=== PATIENT | male | born 1955 | race Caucasian/White ===

== ENCOUNTER 2020-12-02 06:37 | Outpatient (CLI) | payer MEDICARE, OTHER, SELFPAY ==
--- NOTE | ~2020-12-02 | MR_ITS ---
EXAMINATION: MR shoulder LT wo con DATE: 12/02/2020 07:46 INDICATION: Left shoulder pain TECHNIQUE: Magnetic resonance imaging (MRI) of the left shoulder was performed without intravenous co ntrast. Sequences included axial PD-weighted FS FSE, coronal oblique PD-weighted FS FSE, coronal obli que T2-weighted FS FSE, sagittal PD-weighted FS FSE, and sagittal T1-weighted SE. COMPARISON: None. FINDINGS: Coracoacromial arch: The acromion undersurface is flat in morphology (type I). The coracoacromial ligament is normal. Lori re acromioclavicular osteoarthritis with subarticular cystic change and edema at both sides of the se verely narrowed joint space. Rotator cuff: Mild supraspinatus and subscapularis tendinopathy without discrete tear. The infraspinatus and teres minor tendons are normal. No asymmetric atrophy of the rotator cuff muscles. Mild edema along the po sterior margin of the supraspinatus muscle belly which could be related to low-grade strain. Biceps tendon, glenoid labrum and glenohumeral cartilage: Long head of the biceps tendon is normal. There is a tear at the base of the posterior superior gleno id labrum with tiny para labral cyst at the 11:00 position. Glenohumeral cartilage is . Relatively pr eserved however there are tiny marginal osteophytes at the posterior and anteroinferior glenoid. Fluid: Physiologic amount of fluid in the glenohumeral joint and biceps tendon sheath. No loose osteochondra l bodies. No abnormal fluid signal in the subacromial/subdeltoid bursa to suggest bursitis. Bones: In addition to the acromioclavicular joint is mild cystic change at the lesser tuberosity footplate o f the subscapularis tendon. No fracture or pathologic marrow replacing process. IMPRESSION: 1. Severe acromioclavicular osteoarthritis with prominent reactive edema and subarticular cystic barnes ge at both sides of the joint space. 2. Minimal glenohumeral osteoarthritis with tear of the posterior superior glenoid labrum. 3. Mild supraspinatus and subscapularis tendinopathy without discrete tear but with mild edema along the posterior supraspinatus muscle belly which could be related to low-grade strain. Reviewed, dictated and finalized at location B. CIGAR MAKER IMPRESSION: 1. Severe acromioclavicular osteoarthritis with prominent reactive edema and gallegos barticular cystic change at both sides of the joint space. 2. Minimal glenohumeral osteoarthritis with tear of the posterior superior afsaneh oid labrum. 3. Mild supraspinatus and subscapularis tendinopathy without discrete tear but with mild edema along the posterior supraspinatus muscle belly which could be r elated to low-grade strain.
== END 2020-12-02 06:38 | disposition home or self-care (01) ==
PROVIDERS: PCP Internal Medicine; Visit Provider Physician Assistant Surgical
DX: M19.012 Primary osteoarthritis, left shoulder (principal)
CPT/HCPCS: 73221

== ENCOUNTER 2023-01-04 07:58 | Outpatient (CLI) | payer MEDICARE, OTHER, SELFPAY ==
--- NOTE | ~2023-01-04 | US_ITS ---
EXAMINATION: US abdomen limited DATE: 01/04/2023 08:25 INDICATION: Right upper quadrant pain TECHNIQUE: Multiple grayscale and Doppler ultrasound images of the abdomen were obtained. COMPARISON: None available FINDINGS: Bowel gas obscures visualization of the pancreas The liver is normal with normal echogenici ty and echotexture. No surface nodularity. Normal hepatopetal flow in the main portal vein. The gallb ladder is surgically absent. The common bile duct measures 7 mm, likely due to post cholecystectomy s miller. IMPRESSION: 1. No sonographic correlate for the patient's symptoms. Reviewed, dictated and finalized at location B.
== END 2023-01-04 07:59 | disposition home or self-care (01) ==
PROVIDERS: PCP Internal Medicine; Visit Provider Internal Medicine
DX: R74.8 Abnormal levels of other serum enzymes (principal)
CPT/HCPCS: 76705

== ENCOUNTER 2023-11-11 14:04 | Inpatient (IN) | payer MEDICARE, OTHER, SELFPAY ==
[2023-11-11] VITALS (9 sets, daily range): BP systolic 117–174; BP diastolic 63–75; PULSE 60–66; RESP 10–20; TEMP 36.6–36.8; O2SAT 98–100
--- NOTE | ~2023-11-11 | XR_ITS ---
EXAMINATION: XR chest 1V portable DATE: 11/11/2023 15:11 INDICATION: Shortness of breath. Chest pain. TECHNIQUE: A single frontal view of the chest was obtained. COMPARISON: Chest 2 views 11/30/2017 FINDINGS: There is an interstitial pattern in the mid and lower lung zones, left worse right. No pleu ral effusion or pneumothorax. The heart size is normal. IMPRESSION: 1. Interstitial pattern in the lungs, consistent with mild pulmonary edema versus atypical pneumonia. Reviewed, dictated and finalized at location E. GY RISK MANAGEMENT ANALYST IMPRESSION: 1. Interstitial pattern in the lungs, consistent with mild pulmonary edema vers us atypical pneumonia.
--- NOTE | ~2023-11-11 | CT_ITS ---
EXAMINATION: CTA chest DATE: 11/11/2023 17:01 INDICATION: Chest pain. TECHNIQUE: Computed tomographic angiography (CTA) of the chest was performed with 100 mL Omnipaque-35 0 intravenous contrast. Automated exposure control and iterative reconstruction technique were employ ed. The dose-length product was 388.64 mGy-cm. Maximum intensity projection 3D-reconstructions of the aorta and other arteries were constructed by the technologist on a separate workstation. COMPARISON: None. FINDINGS: The lungs demonstrate minimal atelectasis. A calcified right lung nodule and calcified righ t hilar lymph nodes are consistent with old granulomatous disease. No pleural effusion. The heart siz e is normal. There are coronary artery calcifications. No pericardial effusion. Aortic atherosclerosi s is noted. There are changes of cholecystectomy. There is no pulmonary embolus. There is mild thorac ic spondylosis. IMPRESSION: 1. Aortic atherosclerosis. No aneurysm or dissection. Reviewed, dictated and finalized at location E. H WASHER OPERATOR
--- NOTE | 2023-11-11 14:05 | ECG_ITS ---
Measurements Intervals [place] Rate: 60 P: 64 OK: 146 QRS: 260 QRSD: 85 T: 57 QT: 398 QTc: 400 Interpretive Statements SINUS RHYTHM INCOMPLETE RIGHT BUNDLE BRANCH BLOCK LEFT POSTERIOR FASCICULAR BLOCK [QRS AXIS > 109, INFERIOR Q] SEPTAL MYOCARDIAL INFARCTION , OF INDETERMINATE AGE [40+ ms Q WAVE IN V1/V2] NO PREVIOUS ECG AVAILABLE FOR COMPARISON Electronically Signed On 11-11-2023 15:04:35 [facility] by Sophy Chan M.D.
[2023-11-11 14:45] LABS: Basophils Absolute Auto 0.1 K/mm3 (0.0-0.1); Basophils Percent Auto 0.5 % (0.2-1.2); Eosinophils Absolute Auto 0.2 K/mm3 (0-0.3); Eosinophils Percent Auto 1.3 % (0-4.4); Hematocrit 44.7 % (42.0-52.0); Hemoglobin 15.2 g/dL (14.0-18.0); Immature Granulocyte Absolute 0.03 K/mm3 (0.00-0.031); Immature Granulocyte Percent A 0.3 % (0-0.5); Lymphocytes Absolute Auto 2.41 K/mm3 (0.9-3.2); Lymphocytes Percent Auto 20.6 % (18.3-44.2); Mean Corpuscular Hemoglobin 32.5 pg (26-34); Mean Corpuscular Volume 95.7 fl (80-100); Mean Platelet Volume 10.3 fl (7.4-10.4); Monocytes Absolute Auto 1.1 K/mm3 (0.1-0.6); Monocytes Percent Auto 9.5 % (2.6-8.5); Neutrophils Absolute Auto 7.9 K/mm3 (1.3-6.7); Neutrophils Percent Auto 67.8 % (45.5-73.1); Platelet Count Result 272 k/mm3 (150-375); Red Blood Count 4.67 M/mm3 (4.6-6.20); Red Cell Distribution Width 12.8 % (11.5-14.5); White Blood Count 11.7 K/mm3 (4.5-10.0)
[2023-11-11 14:55] LABS: Alanine Aminotransferase 27 U/L (6-50); Albumin Level 4.4 g/dL (3.5-5.1); Alkaline Phosphatase 120 U/L (38-126); Anion Gap 7 mmol/L (8-16); Aspartate Amino Transferase 32 U/L (17-59); Bilirubin,Total 0.6 mg/dL (0.2-1.3); Blood Urea Nitrogen 12 mg/dL (9-20); Carbon Dioxide 25 mmol/L (22-30); Chloride 105 mmol/L (98-107); Estimated Glomerular Filt Rate > 60; Glucose 97 mg/dL (65-110); Lipase 187 U/L (23-300); Sodium 137 mmol/L (137-145)
[2023-11-11 14:56] LABS: INR 0.9; Prothrombin Time 12.8 Seconds (11.1-14.7)
[2023-11-11 14:57] LABS: Partial Thromboplastin Time 31.1 SECONDS (22.3-36.8)
[2023-11-11 15:05] LABS: Troponin I < 0.012 ng/mL (0.000-0.034)
[2023-11-11] MEDS: ASPIRIN 81 MG CHEWABLE TABLET 243 MG PO (16:34)
[2023-11-11] MEDS: NITROGLYCERIN SL 0.4 MG TABLET SUBLINGUAL (16:35)
--- NOTE | 2023-11-11 17:55 | ED.CHESTPAIN ---
HPI - Chest Pain General Chief Complaint: Chest Pain Stated Complaint: sob, cp Time Seen by Provider: 11/11/23 15:22 History of Present Illness HPI narrative: Patient is a 68-year-old male who presents to the emergency department at this afternoon complaining of chest pain. Patient states that the pain started at 0800 this morning. The patient did not think much of it but while he was at work the pain persisted and did get worse. Patient states that he does have a history of coronary artery disease with previous CT and stent placed approximately 5 years ago at our facility. Patient states that pain starts in his mid chest and feels as though there is an elephant sitting on his chest and does radiate to his right neck and bilateral shoulders. Patient states that while he was at work the pain was severe enough to cause him to come to the emergency department for further evaluation. Since his CT 5 years ago he has not had any chest pain requiring him to come to the emergency department. Patient states that at its worst the pain was 7/10. Patient did take a baby aspirin in the morning. Patient denies any shortness of breath, nausea, vomiting, abdominal pain, dysuria, hematuria, constipation, diarrhea, melena, hematochezia, fevers or chills. Patient also denies any headaches, dizziness, lightheadedness, blurry visions, focal weakness, numbness and or tingling. There are no other modifying, alleviating, or precipitating factors at this time. Related Data Home Medications Medication Instructions Recorded Confirmed aspirin 81 mg tablet,delayed 81 mg PO DAILY 11/01/23 11/01/23 release atorvastatin 40 mg tablet 40 mg PO DAILY 11/01/23 11/01/23 Allergies Allergy/AdvReac Type Severity Reaction Status Date / Time ticagrelor Allergy Unknown Redness of Verified 11/11/23 15:14 Skin Review of Systems Review of Systems: All systems are reviewed and are negative unless stated otherwise in the HPI. PMFSH Family History Family History Grandparent Diabetes mellitus Social History Social History Smoking packs per day: 1 Smoking cigarettes per day: 20.0 Years smoked: 20 Smoking pack-years: 20.00 Smoking status: Current every day smoker Tobacco type: cigarettes Second hand tobacco smoke exposure: Yes Additional smoking assessment comments: CURRENTLY TRYING TO QUIT DOWN TO ABOUT 10 CIG/DAY Alcohol intake: current Substance use: never Substance use type: does not use Living arrangements: with family Spiritual care concerns: No Exam Narrative: General: Alert, awake, afebrile, in no acute distress. HEENT: PERRL, no rhinorrhea, no post nasal drip, oropharynx clear. Neck: Trachea midline, no JVD, no lymphadenopathy. Cardiovascular: Regular rate and rhythm, no murmurs, rubs or gallops, no peripheral edema. Respiratory: Clear to auscultation bilaterally, no tachypnea, no wheezing, no rhonchi, no rubs, no respiratory distress. Abdomen: Soft, nontender, nondistended, no rebound, no guarding, no peritoneal signs. Musculoskeletal: No joint swelling or deformity, normal muscle tone. Skin: No rashes or petechia, no signs of infection. Psychiatric: Alert and oriented, normal behavior and judgment for situation. Neurological: Alert and oriented to person, place, and time. Follows all commands. No focal deficits, speech is clear and fluent. Course Vital Signs Vital signs: Vital Signs Temperature 98.0 F 11/11/23 14:51 Pulse Rate 62 11/11/23 14:51 Blood Pressure 141/63 H 11/11/23 14:51 Pulse Oximetry 99 11/11/23 14:51 Temperature 98 F 11/11/23 15:03 Pulse Rate 66 11/11/23 16:39 Respiratory Rate 15 11/11/23 16:39 Blood Pressure 125/67 11/11/23 16:39 Pulse Oximetry 98 11/11/23 16:39 Oxygen Delivery Room Air 11/11/23 15:03 MDM - Chest Pain MDM Narrative
[2023-11-11 18:02] LABS: Troponin I < 0.012 ng/mL (0.000-0.034)
--- NOTE | 2023-11-11 20:50 | PC.NURSE ---
pt approached this RN and requesting to leave AMA. pt reports he does not want to wait any longer for a hospital bed upstairs. hospitalist paged.
--- NOTE | 2023-11-11 20:54 | PC.NURSE ---
ON 11/11/2023 AT 2050 [address]SE [address] VEE HOSPITALIST AND MADE HER AWARE THAT THIS PT WOULD LIKE TO SIGN OUT AMA DUE TO WAIT TIME FOR IMU BED FOR CHEST PAIN TO RULE OUT ACS. DR. VEE VERBALIZED UNDERSTANDING. WILL ATTEMPT TO HAVE PT SIGN AMA FORM.
--- NOTE | 2023-11-11 21:28 | PC.NURSE ---
pt now agreeing to stay in the hospital. pt on monitor car operator in chair in room.
[2023-11-11 22:48] LABS: Troponin I < 0.012 ng/mL (0.000-0.034)
--- NOTE | 2023-11-11 23:10 | PC.NURSE ---
Assumed care of pt from JACE Quezada at this time.
[2023-11-12] VITALS (13 sets, daily range): BP systolic 108–134; BP diastolic 58–84; PULSE 58–68; RESP 14–18; TEMP 36.4–36.7; O2SAT 96–100; BMI 23.7
--- NOTE | 2023-11-12 00:04 | PM.IMHP ---
H&P: HPI History of Present Illness Date/Time: 11/11/23 20:00 Chief Complaint: Chest pain. Narrative: This is a pleasant 68-year-old gentleman with coronary artery disease and history of stents who presented to the emergency department via private vehicle from home for evaluation of chest pain. The patient provides the following history. He felt fine when he got up this morning. While getting ready for work he developed a heaviness in the mid chest and more so into the right anterior chest. It seems to be worse with deep inspiration and radiates through to the right scapula and into the right side of his neck. He did not think much of it initially and went to work however his symptoms returned and were more intense and he decided to come in for evaluation. He endorses mild lightheadedness with that as well but denies shortness of breath, sweats, nausea, and vomiting. The heaviness is somewhat similar to that he experienced before his previous stents however not entirely so. He had his gallbladder taken out years ago and the symptoms are not at all similar. On exam he did have some reproducible tenderness, especially in the right medial scapular area and somewhat in the right anterior chest. He has not done any recent heavy lifting and denies recent exercise programs or injury. He also denies lower extremity edema and calf pain. Three baby aspirin and sublingual nitroglycerin brought his discomfort from 8-9/10 to 2/10. Initial troponin was negative an EKG did not show any acute ST segment elevations or depressions. Given his cardiac history however he is being admitted in this setting for close monitoring and Cardiology consultation. Review of Systems Review of Systems: Twelve systems were reviewed. No fever, chills, or sweats. No cold or flu symptoms. No paroxysmal nocturnal dyspnea, orthopnea, or lower extremity edema. Except as documented, all other systems were reviewed and are negative. [facility] Past Medical History Medical History (Updated 11/12/23 @ 13:14 by Mayra Badillo PA-C) Coronary artery disease Stent [place] [address] Owen. Tobacco use disorder Surgical History Surgical History (Updated 11/12/23 @ 13:13 by Mayra Badillo PA-C) History of appendectomy History of cardiac catheterization History of cholecystectomy (2017) History of colonoscopy with polypectomy History of coronary artery stent placement (2018) History of left knee replacement History of nasal septoplasty Family History Family History Grandparent Diabetes mellitus Social History Social History (Updated 11/12/23 @ 13:14 by Mayra Badillo PA-C) Social History: Surrogate medical decision maker: Cristobal Chloe, spouse. Code status: Full code. Smoking packs per day: 1 Smoking cigarettes per day: 20.0 Years smoked: 49 Smoking pack-years: 49.00 Smoking status: Current every day smoker Tobacco type: cigarettes Second hand tobacco smoke exposure: Yes Alcohol intake: current Drinks per week: 2 Substance use: never Substance use type: does not use Do You Feel Safe in your Home?: Yes Lack of Transportation: YES Lack of Food: Never True Current Housing: I Have Housing Concerned About Future Housing: No Difficulty Paying Gas/Electric Bills: No Difficulty Paying for Meds: No Currently Unemployed: No Education: Decline to Answer Difficulty w/ Childcare or Family Care: No Living arrangements: with family Additional living arrangements comments: Lives with spouse in [place]. Additional occupation/education comments: [employer]. Spiritual care concerns: No Meds Home Medications and Allergies Home Medications Medication Instructions Recorded Confirmed Type aspirin 81 mg tablet,delayed 81 mg PO DAILY 11/01/23 11/12/23 History release atorvastatin 40 mg tablet 40 mg PO DAILY 11/01/23 11/12/23 History All
--- NOTE | 2023-11-12 01:30 | PC.NURSE ---
This patient, Bienvenido Corona, was admitted to IMU Room 214-01 at 0040. Patient/family oriented to hospital policies and general routines including ID bracelet, bed and alarms, visiting hours, pain management, procedures, bathroom and other care routines, personal items, smoking policy, room service/diet, and visiting hours. Information on how to activate the Rapid Response Team has been discussed. Patient/Family are encouraged to report perceived risks to care and to ask questions if they do not understand what they are told or what they should do.
[2023-11-12 05:36] LABS: Hemoglobin 14.3 g/dL (14.0-18.0); Mean Corpuscular Hemoglobin 32.5 pg (26-34); Mean Corpuscular Volume 95.5 fl (80-100); Mean Platelet Volume 10.4 fl (7.4-10.4); Platelet Count Result 242 k/mm3 (150-375); Red Cell Distribution Width 12.6 % (11.5-14.5); White Blood Count 7.1 K/mm3 (4.5-10.0)
[2023-11-12 05:44] LABS: Anion Gap 5 mmol/L (8-16); Blood Urea Nitrogen 12 mg/dL (9-20); CRP 1.2 mg/dL (<1.0); Calcium 9.4 mg/dL (8.4-10.2); Carbon Dioxide 27 mmol/L (22-30); Chloride 105 mmol/L (98-107); Estimated CRCL calculation 80 ml/min; Estimated Glomerular Filt Rate > 60; Glucose 99 mg/dL (65-110); Potassium 3.8 mmol/L (3.4-5.0); Sodium 137 mmol/L (137-145)
[2023-11-12] MEDS: ATORVASTATIN 40 MG TABLET PO (08:24)
[2023-11-12] MEDS: ASPIRIN 81 MG ENTERIC TABLET PO (08:24)
[2023-11-12] MEDS: ACETAMINOPHEN 325 MG TABLET 650 MG PO (08:26)
--- NOTE | 2023-11-12 12:58 | PM.CNCAR ---
Assessment and Plan Assessment and plan (1) Chest pain: Code(s): R07.9 - Chest pain, unspecified Status: Acute Plan This is a 68-year-old man known to have coronary disease as detailed above. He entered the hospital yesterday with an episode of symptoms and understandably has created some concern on his behalf. Fortunately compared to his visit in 2018 he does not have any objective evidence of acute coronary syndrome. Evaluating this noninvasively verses invasively was discussed in detail with the patient. It is his significant preference to have a follow-up angiogram performed which I told him is reasonable since he is reporting that the symptoms were reminiscent of his previous cardiac symptoms. Unfortunately he just finished eating lunch and so he is not able to have a coronary angiogram electively this afternoon. He and his will consider the concept of staying in the hospital until Wednesday in having this done or I told him that he is objectively stable enough to have this done as an outpatient since his troponin levels are undetectable. I am going to add clopidogrel back to his medical regimen and await their decision. I am happy to perform is angiogram on Wednesday if he chooses to stay in the hospital on the other hand I am also happy to schedule it as an outpatient if he prefers that approach Danilo Owen MD [facility] History of Present Illness History of Present Illness Consult date/time: 11/12/23 12:58 Reason For Visit: CP,R/O ACS Narrative: This is a very pleasant 68-year-old man who is known to have coronary artery disease and for this follows in our office regularly. We are asked to see him in consultation today because of an episode of chest pain that occurred yesterday. Patient was in his usual state of health at home when he started to notice the sense of some low substernal chest discomfort that was [id number] in intensity was not associated with any sense of nausea vomiting or diaphoresis it did not radiate to any other location in the body. Because of his history of coronary disease in because he states the symptoms were somewhat similar to a ischemic pain that he had in the past he came to this hospital for further evaluation. In the emergency room his electrocardiogram was benign his troponin levels were undetectable. He did receive some sublingual nitroglycerin which improved the symptoms he was then admitted to IMU. In the IMU yesterday and through the evening he had no recurrence of these symptoms his troponin levels have been normal x3 sets. He feels well at this time and offers no other complaints. He has a history of coronary artery disease that was diagnosed in November of 2017 when he presented to this hospital with intermittent chest pain at that time he had dynamic ischemic electrocardiographic changes and a moderate rise in his troponin level. He underwent catheterization demonstrating single-vessel coronary disease with high-grade stenosis in the OM2 branch of his circumflex which was treated with a 2.5 mm drug-eluting stent with a good angiographic result. He had no complications after the procedure other than a cutaneous reaction to Brilinta and resulting in him being switched to to clopidogrel at that time. He has been seen in the office since then and has not had any recurrent ischemic problems and otherwise has been doing quite well. Review of Systems Constitutional: Constitutional: Reports no additional constitutional complaints Eyes: Eyes: Reports no additional eye complaints ENT: Reports system reviewed and no additional complaints, except as documented Cardiovascular: Cardiovascular: Reports as per HPI Respiratory: Respiratory: Reports no additional respiratory complaints Gastrointestinal: Gastrointestinal: Reports no additional gastrointestinal complaints Musculoskeletal: Musculoskeletal: Reports no additional musculoskeletal complaints Integumentary/Breasts: Skin/Br
[2023-11-12] MEDS: CLOPIDOGREL BISULFATE 75 MG TABLET PO (13:18)
--- NOTE | 2023-11-12 15:04 | PM.DS ---
DS: Admitting Diagnosis Discharge Date 11/12/23 Admitting Diagnosis 1. Chest pain; Probable ACS DS: Discharge Diagnosis Discharge Diagnosis (1) Chest pain: Code(s): R07.9 - Chest pain, unspecified Status: Acute Assessment and Plan: Cardiology: He has a history of coronary artery disease that was diagnosed in November of 2017 when he presented to this hospital with intermittent chest pain at that time he had dynamic ischemic electrocardiographic changes and a moderate rise in his troponin level.? He underwent catheterization demonstrating single-vessel coronary disease with high-grade stenosis in the OM2 branch of his circumflex which was treated with a 2.5 mm drug-eluting stent with a good angiographic result.? He had no complications after the procedure other than a cutaneous reaction to Brilinta and resulting in him being switched to to clopidogrel at that time.? He has been seen in the office since then and has not had any recurrent ischemic problems and otherwise has been doing quite well. ?It is his significant preference to have a follow-up angiogram performed which I told him is reasonable since he is reporting that the symptoms were reminiscent of his previous cardiac symptoms.? Unfortunately he just finished eating lunch and so he is not able to have a coronary angiogram electively this afternoon.? He and his will consider the concept of staying in the hospital until Wednesday in having this done or I told him that he is objectively stable enough to have this done as an outpatient since his troponin levels are undetectable.? I am going to add clopidogrel back to his medical regimen and await their decision.? I am happy to perform is angiogram on Wednesday if he chooses to stay in the hospital on the other hand I am also happy to schedule it as an outpatient if he prefers that approach (2) Coronary artery disease: Code(s): I25.10 - Atherosclerotic heart disease of [place] coronary artery without angina pectoris Status: Acute Assessment and Plan: Cardiology: He has a history of coronary artery disease that was diagnosed in November of 2017 when he presented to this hospital with intermittent chest pain at that time he had dynamic ischemic electrocardiographic changes and a moderate rise in his troponin level.? He underwent catheterization demonstrating single-vessel coronary disease with high-grade stenosis in the OM2 branch of his circumflex which was treated with a 2.5 mm drug-eluting stent with a good angiographic result.? He had no complications after the procedure other than a cutaneous reaction to Brilinta and resulting in him being switched to to clopidogrel at that time.? He has been seen in the office since then and has not had any recurrent ischemic problems and otherwise has been doing quite wel (3) Tobacco use disorder: Code(s): F17.200 - Nicotine dependence, unspecified, uncomplicated Status: Acute Assessment and Plan: Cessation counseling, 3 minutes Plan Cardiology: He has a history of coronary artery disease that was diagnosed in November of 2017 when he presented to this hospital with intermittent chest pain at that time he had dynamic ischemic electrocardiographic changes and a moderate rise in his troponin level.? He underwent catheterization demonstrating single-vessel coronary disease with high-grade stenosis in the OM2 branch of his circumflex which was treated with a 2.5 mm drug-eluting stent with a good angiographic result.? He had no complications after the procedure other than a cutaneous reaction to Brilinta and resulting in him being switched to to clopidogrel at that time.? He has been seen in the office since then and has not had any recurrent ischemic problems and otherwise has been doing quite well. ?It is his significant preference to have a follow-up angiogram performed which I told him is reasonable since he is reporting that the symptoms were reminiscent of his pre
== END 2023-11-12 15:52 | disposition home or self-care (01) | DRG 313 ==
LOC: ANHED 18:20 → ANHIMU 20:53
PROVIDERS: Physician Assistant; Student in an Organized Health Care Education/Training Program; Admitting Provider Internal Medicine; Emergency Provider Emergency Medicine; PCP Internal Medicine; Visit Provider Internal Medicine
DX: R07.9 Chest pain, unspecified (principal); I25.10 Atherosclerotic heart disease of native coronary artery without angina pectoris; F17.210 Nicotine dependence, cigarettes, uncomplicated; Z96.652 Presence of left artificial knee joint; I25.2 Old myocardial infarction; Z95.5 Presence of coronary angioplasty implant and graft; Z79.82 Long term (current) use of aspirin
CPT/HCPCS: 36415; 71045; 71275; 80048; 80053; 83690; 84145; 84484; 85025; 85027; 85610; 85730; 86140; 93005; 99285; A9270; Q9967

== ENCOUNTER 2023-11-19 00:10 | Day surgery (SDC) | payer MEDICARE, OTHER, SELFPAY ==
[2023-11-18 14:59] VITALS: BMI 23.5
[2023-11-19] VITALS (12 sets, daily range): BP systolic 104–125; BP diastolic 61–88; PULSE 55–72; RESP 13–20; TEMP 36.4–36.6; O2SAT 94–99; BMI 23.1
[2023-11-19 09:31] LABS: Basophils Absolute Auto 0.1 K/mm3 (0.0-0.1); Basophils Percent Auto 0.9 % (0.2-1.2); Eosinophils Absolute Auto 0.2 K/mm3 (0-0.3); Eosinophils Percent Auto 2.2 % (0-4.4); Hemoglobin 15.7 g/dL (14.0-18.0); Immature Granulocyte Absolute 0.03 K/mm3 (0.00-0.031); Immature Granulocyte Percent A 0.4 % (0-0.5); Lymphocytes Absolute Auto 2.28 K/mm3 (0.9-3.2); Lymphocytes Percent Auto 32.8 % (18.3-44.2); Mean Corpuscular HGB Conc 33.4 g/dl (32-36); Mean Corpuscular Hemoglobin 32.2 pg (26-34); Mean Corpuscular Volume 96.5 fl (80-100); Mean Platelet Volume 10.4 fl (7.4-10.4); Monocytes Absolute Auto 0.7 K/mm3 (0.1-0.6); Monocytes Percent Auto 10.3 % (2.6-8.5); Neutrophils Absolute Auto 3.7 K/mm3 (1.3-6.7); Neutrophils Percent Auto 53.4 % (45.5-73.1); Platelet Count Result 269 k/mm3 (150-375); Red Blood Count 4.87 M/mm3 (4.6-6.20); Red Cell Distribution Width 12.5 % (11.5-14.5)
[2023-11-19 09:41] LABS: Anion Gap 7 mmol/L (8-16); Blood Urea Nitrogen 13 mg/dL (9-20); Calcium 10.1 mg/dL (8.4-10.2); Carbon Dioxide 28 mmol/L (22-30); Chloride 102 mmol/L (98-107); Estimated CRCL calculation 71 ml/min; Estimated Glomerular Filt Rate > 60; Glucose 106 mg/dL (65-110); Potassium 4.3 mmol/L (3.4-5.0); Sodium 137 mmol/L (137-145)
--- NOTE | 2023-11-19 11:04 | HP_ITS ---
This report was moved to the correct visit on 11/22/2023. The original report was signed by Danilo Owen MD on 11/19/23 1103. Moderate Sedation Note-Pt Data Patient Data Diagnosis: coronary artery disease with previous circumflex stenting in 2018 Present Complaint: recent admission with chest pain Procedure to be performed/Plan: left heart catheterization Allergies Allergy/AdvReac Type Severity Reaction Status Date / Time ticagrelor Allergy Unknown Redness of Verified 11/18/23 14:57 Skin Home Medications Medication Instructions Recorded Confirmed Type aspirin 81 mg tablet,delayed 81 mg PO DAILY 11/01/23 11/18/23 History release atorvastatin 40 mg tablet 40 mg PO DAILY 11/01/23 11/18/23 History clopidogrel 75 mg tablet 75 mg PO QAM #14 tabs 11/12/23 11/18/23 Rx nitroglycerin 0.4 mg sublingual 0.4 mg sublingual Q5M PRN chest 11/12/23 11/18/23 Rx tablet pain #14 tabs Current Medications: Active Medications Sodium Chloride (Normal Saline Iv) 1,000 mls @ 125 mls/hr IV CONT .Q8H ONE Stop: 11/19/23 19:01 Sedation/Anesthesia: No previous sedation/anesthesia problems (including family history). [facility] Past Medical History Medical History (Updated 11/12/23 @ 13:14 by Mayra Badillo PA-C) Coronary artery disease Stent to OM in [address] Owen. Tobacco use disorder Surgical History Surgical History (Updated 11/12/23 @ 13:13 by Mayra Badillo PA-C) History of appendectomy History of cardiac catheterization History of cholecystectomy (2016) History of colonoscopy with polypectomy History of coronary artery stent placement (2018) History of left knee replacement History of nasal septoplasty Family History Family History Grandparent Diabetes mellitus Social History Social History (Updated 11/12/23 @ 13:14 by Mayra Badillo PA-C) Social History: Surrogate medical decision maker: Levar Corona, spouse. Code status: Full code. Smoking packs per day: 1 Smoking cigarettes per day: 20.0 Years smoked: 49 Smoking pack-years: 49.00 Smoking status: Former smoker Tobacco type: cigarettes Second hand tobacco smoke exposure: Yes Alcohol intake: current Drinks per week: 2 Substance use: never Substance use type: does not use Last use: 11/11/2023 Do You Feel Safe in your Home?: Yes Lack of Transportation: YES Lack of Food: Never True Current Housing: I Have Housing Concerned About Future Housing: No Difficulty Paying Gas/Electric Bills: No Difficulty Paying for Meds: No Currently Unemployed: No Education: Decline to Answer Difficulty w/ Childcare or Family Care: No Living arrangements: with family Additional living arrangements comments: Lives with spouse in [place]. Additional occupation/education comments: [employer]. Spiritual care concerns: No Mod Sed Physical Exam Physical Exam Pre Procedural Exam: Normal: Appearance, Neck, Throat, Airway, Lungs, Heart Size, Heart Rate, Heart Rhythm, Neuro Exam and Extremities Hours since solid foods: 121 Hours since liquid intake: 12 Mallampati Classification: class II Internal Medicine - PN: Obj Da Meds/Results Medications: Active Medications Generic Name Dose Route Start Last Admin Trade Name Freq PRN Reason Stop Dose Admin Sodium Chloride 1,000 mls @ 125 mls/hr 11/19/23 11:02 Normal Saline Iv IV CONT 11/19/23 19:01 .Q8H ONE ASA Classificati
--- NOTE | 2023-11-19 11:09 | OP_ITS ---
This report was moved to the correct visit on 11/22/2023. The original report was signed by Danilo Owen MD on 11/19/23 1109. Cardiac Cath Procedure Note Date of procedure:: 11/19/23 Performing physician:: Danilo Owen MD Indication:: recent incident of chest pain worrisome for ischemia coronary artery disease with PCI to the circumflex in 2018 Brief clinical history:: this is a 68-year-old man with coronary disease who received a drug-eluting stent to the circumflex for high-grade 99% stenosis and acute coronary syndrome and 2018. He is been doing well. Recently was admitted overnight for the some chest pain that raised significant concern. Despite the symptoms his ECG and troponins showed no evidence of acute coronary syndrome. Following this ischemic testing was recommended and the patient preferred angiography rather than stress testing as he indicated the symptoms were similar to his previous ischemia Procedure Procedure performed:: left ventriculogram coronary angiography Angio-Seal to right femoral artery Sedation/Medication given:: fentanyl 50 mg Versed 2 mg case start time 10:40 a.m. case end time 10:59 a.m. sedation provided by Maryan Gomez RN trained observer Access site:: right femoral artery Estimated blood loss:: 20 cc Procedure note:: patient was brought to the cardiac catheterization lab postabsorptive state where right femoral triangle was prepared and draped in the normal fashion. Anesthesia was provided with 1% lidocaine infiltrated locally. Using the modified Seldinger technique a 5 Kyrgyz sheath was placed into the right common femoral artery after this left heart catheterization was carried out. A 5 Kyrgyz angled pigtail catheter was used to perform a left ventricular injection and measure left-sided hemodynamics. Standard JR4 and FL4 catheters we used to perform selective right and left coronary angiography in multiple projections. His cineangiograms were then reviewed and the case was terminated. An angiogram was performed of the femoral artery through the sheath after which time the Angio-Seal device was deployed with good hemostatic result. Patient was then brought to the holding area in stable condition there were no apparent procedural complications and there was no sign of groin hematoma upon departure from the cardiac catheterization lab. Findings:: Hemodynamics: Central aortic pressure is 136 over 64 left ventricle 136/5 end-diastolic pressure 16 there is gradient on pullback across the aortic valve. Left ventricle: The LV is normal in size all segments contract vigorously the global ejection fraction is 60-65% by visual estimation. The left main coronary artery is widely patent the left anterior descending medium caliber vessel extending down to and around the apex the LAD is smooth and free of atherosclerosis the circumflex is a moderate caliber artery giving rise to marginal branches. There is previous stent material from the procedure in 2018 visible from the mid circumflex into the distal OM 2 branch. This abrupt bridges over the origin of a rather small OM1 branch. The circumflex stent is widely patent there is no loss of lumen and appropriate step-up and step-down angiographically. There are no other lesions seen in the circumflex system. The right coronary artery is large in caliber and dominant to the posterior circulation the right coronary artery is smooth and angiographically normal. Conclusion:: 1. Right coronary dominant circulation with no angiographically significant lesions seen at this time 2. previously deployed stent in the circumflex 2018 remains widely patent 3. normal left ventricular systolic function 4. based on these findings his recent symptoms of chest pa
== END 2023-11-19 14:45 | disposition home or self-care (01) ==
PROVIDERS: PCP Internal Medicine; Visit Provider Specialist
PROC: 4A023N7 Measurement of Cardiac Sampling and Pressure, Left Heart, Percutaneous Approach (ICD-10-PCS; CPT 93452; principal; 2023-11-19 10:30)
DX: I25.10 Atherosclerotic heart disease of native coronary artery without angina pectoris (principal); Z79.82 Long term (current) use of aspirin; Z79.02 Long term (current) use of antithrombotics/antiplatelets; Z90.49 Acquired absence of other specified parts of digestive tract; Z95.5 Presence of coronary angioplasty implant and graft; Z87.891 Personal history of nicotine dependence
CPT/HCPCS: 36415; 80048; 85025; 93458; C1760; C1887; C1894; G0269; J1644; J2250; J3010; J7040

== ENCOUNTER 2023-11-29 03:51 | Day surgery (SDC) | payer MEDICARE, OTHER, SELFPAY ==
[2023-11-01 12:42] VITALS: BMI 23.4
--- NOTE | 2023-11-19 11:03 | WPDMODSED ---
Moderate Sedation Note-Pt Data Patient Data Diagnosis: coronary artery disease with previous circumflex stenting in 2018 Present Complaint: recent admission with chest pain Procedure to be performed/Plan: left heart catheterization Allergies Allergy/AdvReac Type Severity Reaction Status Date / Time ticagrelor Allergy Unknown Redness of Verified 11/18/23 14:57 Skin Home Medications Medication Instructions Recorded Confirmed Type aspirin 81 mg tablet,delayed 81 mg PO DAILY 11/01/23 11/18/23 History release atorvastatin 40 mg tablet 40 mg PO DAILY 11/01/23 11/18/23 History clopidogrel 75 mg tablet 75 mg PO QAM #14 tabs 11/12/23 11/18/23 Rx nitroglycerin 0.4 mg sublingual 0.4 mg sublingual Q5M PRN chest 11/12/23 11/18/23 Rx tablet pain #14 tabs Current Medications: Active Medications Sodium Chloride (Normal Saline Iv) 1,000 mls @ 125 mls/hr IV CONT .Q8H ONE Stop: 11/19/23 19:01 Sedation/Anesthesia: No previous sedation/anesthesia problems (including family history). [facility] Past Medical History Medical History (Updated 11/12/23 @ 13:14 by Mayra Badillo PA-C) Coronary artery disease Stent [place] [address] Owen. Tobacco use disorder Surgical History Surgical History (Updated 11/12/23 @ 13:13 by Mayra Badillo PA-C) History of appendectomy History of cardiac catheterization History of cholecystectomy (2017) History of colonoscopy with polypectomy History of coronary artery stent placement (2017) History of left knee replacement History of nasal septoplasty Family History Family History Grandparent Diabetes mellitus Social History Social History (Updated 11/12/23 @ 13:14 by Mayra Badillo PA-C) Social History: Surrogate medical decision maker: Levar Corona, spouse. Code status: Full code. Smoking packs per day: 1 Smoking cigarettes per day: 20.0 Years smoked: 49 Smoking pack-years: 49.00 Smoking status: Former smoker Tobacco type: cigarettes Second hand tobacco smoke exposure: Yes Alcohol intake: current Drinks per week: 2 Substance use: never Substance use type: does not use Last use: 11/11/2023 Do You Feel Safe in your Home?: Yes Lack of Transportation: YES Lack of Food: Never True Current Housing: I Have Housing Concerned About Future Housing: No Difficulty Paying Gas/Electric Bills: No Difficulty Paying for Meds: No Currently Unemployed: No Education: Decline to Answer Difficulty w/ Childcare or Family Care: No Living arrangements: with family Additional living arrangements comments: Lives with spouse in [place]. Additional occupation/education comments: [employer]. Spiritual care concerns: No Mod Sed Physical Exam Physical Exam Pre Procedural Exam: Normal: Appearance, Neck, Throat, Airway, Lungs, Heart Size, Heart Rate, Heart Rhythm, Neuro Exam and Extremities Hours since solid foods: 121 Hours since liquid intake: 12 Mallampati Classification: class II Internal Medicine - PN: Obj Da Meds/Results Medications: Active Medications Generic Name Dose Route Start Last Admin Trade Name Freq PRN Reason Stop Dose Admin Sodium Chloride 1,000 mls @ 125 mls/hr 11/19/23 11:02 Normal Saline Iv IV CONT 11/19/23 19:01 .Q8H ONE ASA Classification/Sedation ASA Classification/Sedation ASA Class: II Emergent: No Risks: Risks, benefits and alternatives explained and patient/family accepted plan for sedation. Patient re-evaluated immediately prior to sedation.
--- NOTE | 2023-11-19 11:04 | WPDCARDPROC ---
Cardiac Cath Procedure Note Date of procedure:: 11/19/23 Performing physician:: Danilo Owen MD Indication:: recent incident of chest pain worrisome for ischemia coronary artery disease with PCI to the circumflex in 2018 Brief clinical history:: this is a 68-year-old man with coronary disease who received a drug-eluting stent to the circumflex for high-grade 99% stenosis and acute coronary syndrome and 2018. He is been doing well. Recently was admitted overnight for the some chest pain that raised significant concern. Despite the symptoms his ECG and troponins showed no evidence of acute coronary syndrome. Following this ischemic testing was recommended and the patient preferred angiography rather than stress testing as he indicated the symptoms were similar to his previous ischemia Procedure Procedure performed:: left ventriculogram coronary angiography Angio-Seal to right femoral artery Sedation/Medication given:: fentanyl 50 mg Versed 2 mg case start time 10:40 a.m. case end time 10:59 a.m. sedation provided by Maryan Gomez RN trained observer Access site:: right femoral artery Estimated blood loss:: 20 cc Procedure note:: patient was brought to the cardiac catheterization lab postabsorptive state where right femoral triangle was prepared and draped in the normal fashion. Anesthesia was provided with 1% lidocaine infiltrated locally. Using the modified Seldinger technique a 5 Tongan sheath was placed into the right common femoral artery after this left heart catheterization was carried out. A 5 Tongan angled pigtail catheter was used to perform a left ventricular injection and measure left-sided hemodynamics. Standard JR4 and FL4 catheters we used to perform selective right and left coronary angiography in multiple projections. His cineangiograms were then reviewed and the case was terminated. An angiogram was performed of the femoral artery through the sheath after which time the Angio-Seal device was deployed with good hemostatic result. Patient was then brought to the holding area in stable condition there were no apparent procedural complications and there was no sign of groin hematoma upon departure from the cardiac catheterization lab. Findings:: Hemodynamics: Central aortic pressure is 136 over 64 left ventricle 136/5 end-diastolic pressure 16 there is gradient on pullback across the aortic valve. Left ventricle: The LV is normal in size all segments contract vigorously the global ejection fraction is 60-65% by visual estimation. The left main coronary artery is widely patent the left anterior descending medium caliber vessel extending down to and around the apex the LAD is smooth and free of atherosclerosis the circumflex is a moderate caliber artery giving rise to marginal branches. There is previous stent material from the procedure in 2018 visible from the mid circumflex into the distal OM 2 branch. This abrupt bridges over the origin of a rather small OM1 branch. The circumflex stent is widely patent there is no loss of lumen and appropriate step-up and step-down angiographically. There are no other lesions seen in the circumflex system. The right coronary artery is large in caliber and dominant to the posterior circulation the right coronary artery is smooth and angiographically normal. Conclusion:: 1. Right coronary dominant circulation with no angiographically significant lesions seen at this time 2. previously deployed stent in the circumflex 2018 remains widely patent 3. normal left ventricular systolic function 4. based on these findings his recent symptoms of chest pain appear to be nonischemic in nature Danilo Owen MD [facility]
--- NOTE | 2023-11-26 12:22 | SUR.PREOP ---
Patient called regarding upcoming procedure. Voicemail left regarding appointment times.
--- NOTE | 2023-11-26 17:02 | PM.HPGS ---
History of Present Illness History of Present Illness Consent: Risks, benefits, and alternatives have been discussed and questions answered. Patient agrees to proceed with procedure. Chief complaint: neoplasm screening Narrative: Bienvenido Corona is a 68 year old male Referred for colon cancer screening. his last colonoscopy was at least 10 years ago. Review of Systems Review of Systems: All systems reviewed & are unremarkable except as noted in HPI and below PMFSH Past Medical History Medical History Coronary artery disease Stent [place] [address] Owen. Tobacco use disorder Surgical History Surgical History History of appendectomy History of cardiac catheterization History of cholecystectomy (2017) History of colonoscopy with polypectomy History of coronary artery stent placement (2018) History of left knee replacement History of nasal septoplasty Family History Family History Grandparent Diabetes mellitus Social History Social History Social History: Surrogate medical decision maker: Levar Corona, spouse. Code status: Full code. Smoking packs per day: 1 Smoking cigarettes per day: 20.0 Years smoked: 49 Smoking pack-years: 49.00 Smoking status: Former smoker Tobacco type: cigarettes Second hand tobacco smoke exposure: Yes Alcohol intake: current Drinks per week: 2 Substance use: never Substance use type: does not use Last use: 11/11/2023 Do You Feel Safe in your Home?: Yes Lack of Transportation: YES Lack of Food: Never True Current Housing: I Have Housing Concerned About Future Housing: No Difficulty Paying Gas/Electric Bills: No Difficulty Paying for Meds: No Currently Unemployed: No Education: Decline to Answer Difficulty w/ Childcare or Family Care: No Living arrangements: with family Additional living arrangements comments: Lives with spouse in [place]. Additional occupation/education comments: [employer]. Spiritual care concerns: No Meds Home Medications and Allergies Home Medications Medication Instructions Recorded Confirmed Type aspirin 81 mg tablet,delayed 81 mg PO DAILY 11/01/23 11/18/23 History release atorvastatin 40 mg tablet 40 mg PO DAILY 11/01/23 11/18/23 History clopidogrel 75 mg tablet 75 mg PO QAM #14 tabs 11/12/23 11/18/23 Rx nitroglycerin 0.4 mg sublingual 0.4 mg sublingual Q5M PRN chest 11/12/23 11/18/23 Rx tablet pain #14 tabs Allergies Allergy/AdvReac Type Severity Reaction Status Date / Time ticagrelor Allergy Unknown Redness of Verified 11/29/23 07:03 Skin Exam Resp: Auscultation: clear to auscultation bilaterally Cardio: Rate: regular rate Rhythm: regular rhythm GI: GI Palp: Yes Soft to palpation and No Tenderness to palpation present (GI) Assessment and Plan Assessment and plan (1) Colon cancer screening: Code(s): Z12.11 - Encounter for screening for malignant neoplasm of colon Status: Acute Assessment and Plan: Colonoscopy with possible biopsy or polypectomy or cautery or injection of substances.
[2023-11-29 07:05] VITALS: BP 116/64; PULSE 61; RESP 18; TEMP 36.1; O2SAT 99
--- NOTE | 2023-11-29 07:06 | WPDANESEPPF ---
Anes - Initial Pre Proc Eval Procedure: Operation Date: 11/29/23 07:30 Proposed Procedures p Screening Colonoscopy - Hector Hodges MD Date/Time: 11/29/23 07:06 Surgeon: Hector Hodges MD Pre Op Diagnosis: neoplasm screening Patient Data Age: 68 Gender: M Height: 1.7 m Weight: 68 kg Allergies Allergy/AdvReac Type Severity Reaction Status Date / Time ticagrelor Allergy Unknown Redness of Verified 11/29/23 07:03 Skin Home Medications Medication Instructions Recorded Confirmed Type aspirin 81 mg tablet,delayed 81 mg PO DAILY 11/01/23 11/18/23 History release atorvastatin 40 mg tablet 40 mg PO DAILY 11/01/23 11/18/23 History clopidogrel 75 mg tablet 75 mg PO QAM #14 tabs 11/12/23 11/18/23 Rx nitroglycerin 0.4 mg sublingual 0.4 mg sublingual Q5M PRN chest 11/12/23 11/18/23 Rx tablet pain #14 tabs Patient hx anesthesia problems: none Family hx anesthesia problems: none Results Review: All pre-operative results and documents have been reviewed as part of the pre-operative evaluation. [facility] Past Medical History Medical History Coronary artery disease Stent [place] [address] Owen. Tobacco use disorder Surgical History Surgical History History of appendectomy History of cardiac catheterization History of cholecystectomy (2016) History of colonoscopy with polypectomy History of coronary artery stent placement (2017) History of left knee replacement History of nasal septoplasty Family History Family History Grandparent Diabetes mellitus Social History Social History Social History: Surrogate medical decision maker: Levar Corona, spouse. Code status: Full code. Smoking packs per day: 1 Smoking cigarettes per day: 20.0 Years smoked: 49 Smoking pack-years: 49.00 Smoking status: Former smoker Tobacco type: cigarettes Second hand tobacco smoke exposure: Yes Alcohol intake: current Drinks per week: 2 Substance use: never Substance use type: does not use Last use: 11/11/2023 Do You Feel Safe in your Home?: Yes Lack of Transportation: YES Lack of Food: Never True Current Housing: I Have Housing Concerned About Future Housing: No Difficulty Paying Gas/Electric Bills: No Difficulty Paying for Meds: No Currently Unemployed: No Education: Decline to Answer Difficulty w/ Childcare or Family Care: No Living arrangements: with family Additional living arrangements comments: Lives with spouse in [place]. Additional occupation/education comments: [employer]. Spiritual care concerns: No Anes - Eval Final PreProcedure Day of Procedure 11/29/23 07:06 Patient weight: normal Heart: regular rate and rhythm Lungs: clear to auscultation Airway: Mallampati scale class II Neurological: alert and oriented Last oral intake: >/= 8 hours ASA classification: III Emergent: no Anesthetic plan: proceed Anesthesia type and monitoring: general GIVS and standard monitoring Results Review: All pre-operative results and documents have been reviewed as part of the pre-operative evaluation. Informed Consent: The patient's anesthetic plan and its attendant risks and benefits were discussed with the patient/family/POA. Questions were solicited and answers provided to the satisfaction of the patient/family/POA.
[2023-11-29] MEDS: LACTATED RINGERS 1,000 ML 150 ML IV CONT (07:20)
[2023-11-29] MEDS: SIMETHICONE ORAL SUSPENSION 20 MG/0.3 ML 30 ML BOTTLE 0.6 ML IRRIGATION (08:07)
[2023-11-29 08:19] VITALS: BP 104/64; PULSE 71; RESP 18; O2SAT 100
[2023-11-29 08:29] VITALS: BP 128/76; PULSE 72; RESP 17; O2SAT 100
[2023-11-29 08:39] VITALS: BP 128/81; PULSE 70; RESP 16; O2SAT 100
== END 2023-11-29 08:45 | disposition home or self-care (01) ==
PROVIDERS: PCP Internal Medicine; Visit Provider Internal Medicine Gastroenterology
PROC: 0DJD8ZZ Inspection of Lower Intestinal Tract, Via Natural or Artificial Opening Endoscopic (ICD-10-PCS; CPT 45378; principal; 2023-11-29 07:30)
DX: Z12.11 Encounter for screening for malignant neoplasm of colon (principal); D12.4 Benign neoplasm of descending colon; K62.1 Rectal polyp; K57.30 Diverticulosis of large intestine without perforation or abscess without bleeding; Z79.82 Long term (current) use of aspirin; Z79.02 Long term (current) use of antithrombotics/antiplatelets; Z98.890 Other specified postprocedural states; Z90.49 Acquired absence of other specified parts of digestive tract; Z95.5 Presence of coronary angioplasty implant and graft; Z87.891 Personal history of nicotine dependence; Z86.79 Personal history of other diseases of the circulatory system
CPT/HCPCS: 45385; 45380; 88305; J2704; J7120

== ENCOUNTER 2024-12-18 15:59 | Outpatient (CLI) | payer MEDICARE, OTHER, SELFPAY ==
--- NOTE | ~2024-12-18 | CT_ITS ---
CLINICAL INDICATION: Nicotine dependence COMPARISON: 11/11/2023. TECHNIQUE: Multiple contiguous axial images of the chest was performed without the administration of intravenous contrast. This CT examination was performed utilizing dose reduction techniques. DLP: 80 mGy-cm FINDINGS/OBSERVATIONS: LUNG:Calcified granuloma within the right lower lobe, suggesting prior granulomatous disease. The remainder of the lungs are otherwise clear. HEART: The heart is of normal size, without pericardial effusion. MEDIASTINUM: No pathologically enlarged or morphologically suspicious lymph nodes are identified within the medias tinum, bilateral axilla, within the soft tissues of the anterior chest wall. SOFT TISSUES OF THE CHEST: Unremarkable. BONES OF THE CHEST: No acute fracture. No lytic or blastic lesions are identified. UPPER ABDOMEN: The gallbladder is surgically absent. IMPRESSION: No discrete noncalcified pulmonary nodules. Reviewed, dictated and finalized at location A.
--- OUTSIDE RECORDS SUMMARY | 2024-12-18 18:34 | XMS_ITS | Patient Health Summary ---
Author Organization [facility] Address [address] [place] [address] Care Team Providers Care Mud Tank Operator Name Role Phone Arcelia Garcia MD Primary Care Provider Danilo Oewn MD Unavailable [phone] Note from [facility],non-owned Affiliates and Associated Physician Practices is amultiple site organization consisting of ambulatory clinics and hospital sitesin [place], [place], [place] and [place]. This disclosure is being madepursuant to the Care Everywhere program and may not contain all information available regarding this patient. Last updated 18.[facility] Allergies * Ticagrelor(Urticaria) -Medium Criticality Medications * Be aware that medications may not be up to date on this document. Alwaysverify current medications with the patient. * atorvastatin (Lipitor) 40 MG tablet(Started 01/29/2021) at bedtime * ezetimibe (Zetia) 10 MG tablet(Started 08/25/2022) Take 1 (one) tablet by mouth once daily * nitroGLYCERIN (Nitrostat) 0.4 MG tablet every 5 minutes as needed * Multiple Vitamins-Minerals (CENTRUM SILVER PO) Take by mouth once daily * oxyCODONE, immediate release, (Roxicodone) 5 MG tablet(Started 10/29/2022) Take 1 (one) tablet to 2 (two) tablets by mouth every 6 hours as needed for Pain * celecoxib (CeleBREX) 200 MG capsule(Started 10/30/2022) Take 1 (one) capsule by mouth 2 times daily 5 refills by 10/30/2023 * docusate sodium (Colace) 100 MG capsule Take 100 mg by mouth 2 times daily as needed for Constipation. Indications: Constipation * acetaminophen (Tylenol) 500 MG tablet Take 1,000 mg by mouth 3 times daily as needed for Pain. Indications: Pain * cephalexin (Keflex) 500 MG capsule(Started 12/10/2022) Take 1 (one) capsule by mouth 3 times daily Active Problems Problem Noted Date Diagnosed Date Primary osteoarthritis of both knees 05/11/2022 Social History Tobacco Use Types Packs/Day Years Used Date Smoking Tobacco: Every Day Cigarettes Cigars Smokeless Tobacco: Never Tobacco Cessation:Ready to Q uit: Not Asked; Counseling Given: Not Answered Comments:Cigars once per day Alcohol Use Standard Drinks/Week Comments Yes 0 (1 standard drink = 0.6 oz pur e alcohol) social OASIS D0700: Social Isolation Answer Da te Recorded Frequency of experiencing loneliness or isolatio n Never 11/17/2022 OASIS A1250: Transportation Answer Date Recorded Lack of Transportation (Medical) No 11/17/2022 Lack of Transportation (Non-Medical) No 11/17/2022 Patient Unable or Declines to Respond No 11/17/2022 OASIS B1300: Health Literacy Answer Darren e Recorded Frequency of needing help to read materials from doctor or pharmacy Never 11/17/2022 AUDIT-C Answer Date Recorded Q1: How often do you have a drink containing alc ohol? 2-4 times a month 10/28/2022 Q2: How many drinks containi ng alcohol do you have on a typical day when you are drinking? 3 or 4 10/28/2022 Q3: How often do you have si x or more drinks on one occasion? Never 10/28/2022 Overall Financial Resource Strain (CARDIA) Answe r Date Recorded How hard is it for you to pa y for the very basics like food, housing, medical care, and heating? Not hard at all 10/29/2022 [facility] [place] of Occupat ional Health - Occupational Stress Questionnaire Answer Date Recorded Do you feel stress - tense, restless, nervous, or anxious, or unable to sleep at night because your mind is troubled all the time - these days? Not at all 10/29/2022 Hunger Vital Sign Answer Date Recorded Within the past 12 months, y ou worried that your food would run out before you got the money to buy more. Never true 10/29/19 23 Within the past 12 months, t he food you bought just didn't last and you didn't have money to get more. Never true 10/29/2022 Housing Stability Vital Sign Answer Darren e Recorded In the last 12 months, was t here a time when you were not able to pay the mortgage or rent on time? No 10/29/2022 In the last 12 months, how many places have you lived? 1 10/29/2022 In the last 12 months, was t here a time when you did not have a steady place to sleep or slept in a senior care (including now)? No 10/29/2022 Sex and Gender Information Value Date Recorded Sex Assigned at Not on file Gender Identity Not on file Sexual Orientation Not on file Last Filed Vital Signs Vital Sign Reading Time Taken Comments Blood Pressure 126/64 11/17/2022 11:26 AM MOLD MAKER HELPER Pulse 60 11/17/2022 11:26 AM MOLD MAKER HELPER Temperature 36.4 C (97.5 F) 11/17/2022 11:26 AM MOLD MAKER HELPER Respiratory Rate 16 11/17/2022 11:26 AM MOLD MAKER HELPER Oxygen Saturation 98% 11/17/2022 11:26 AM MOLD MAKER HELPER Inhaled Oxygen Concentration - - Weight 71.4 kg (157 lb 6.4 oz) 10/28/2022 6:40 A M MOLD MAKER HELPER Height 170.2 cm (5' 7 ) 10/28/2022 6:40 AM MOLD MAKER HELPER s tated Body Mass Index 24.65 10/28/2022 6:40 AM MOLD MAKER HELPER Medical Devices Implanted Type Area Materials Clerk Device Identifier Shelf Expiration Date Model / Serial / Lot Cmpnt Ptlr Std 31mm 3 Pg Kn Ser A Implanted:Qty: 1 on 10/28/2022 by Roberto Malik MD at [facility] Left: Knee [employer] 06/17/2027 [id number] / / [id number] Cmpnt Fem Kn Lt Cr Cmnt Prm Vngrd Intlk Implanted:Qty: 1 on 10/28/2022 by Roberto Malik MD at [facility] Left: Knee [employer] 09/26/2032 [id number] / / [id number] Tray Tib 79mm Kn Cocr I Beam Implanted:Qty: 1 on 10/28/2022 by Roberto Malik MD at [facility] Left: Knee [employer] 09/04/2032 [id number] / / [id number] Cmnt Bone Djo Srg Cblt 40gm Hvisc Strl Implanted:Qty: 2 on 10/28/2022 by Roberto Malik MD at [facility] Left: Knee [employer] 05/27/2024 [id number] / / [id number] Brng [id number] Vngrd Arcm Kn Ant Stab Implanted:Qty: 1 on 10/28/2022 by Roberto Malik MD at [facility] Left: Knee [employer] 08/25/2027 [id number] / / [id number] Procedures * XR KNEE LEFT 3VW(Performed 12/10/2022) Performed for Aftercare following left knee joint replacement surgery * NEURAXIAL BLOCK(Performed 10/28/2022) * MI TOTAL KNEE REPLACEMENT(Performed 10/28/2022) * EKG 12-LEAD(Performed 10/09/2022) Performed for Preoperative examination * CBC W AUTO DIFFERENTIAL(Performed 10/09/2022) Performed for Preoperative examination * COMPREHENSIVE METABOLIC PANEL(Performed 10/09/2022) Performed for Preoperative examination * XR KNEE BILAT 3VW(Performed 05/08/2022) Performed for Pain in both knees, unspecified chronicity * DERMATOPATHOLOGY(Performed 06/19/2011) Results * XR KNEE LEFT 3VW (12/10/2022 2:57 PM MOLD MAKER HELPER) Anatomical Region Laterality Modality Lower Extremity Computed Radiogr aphy Narrative 12/10/2022 2:56 PM MOLD MAKER HELPER Nichole Ramirez 12/11/2022 3:33 PM Please see progress notes for xray results Madhav Dejesus APRN-BOOT AND SHOE REPAIRMAN DIAGNOSTI C IMAGING ORDERABLES * Neuraxial Block (10/28/2022 8:55 AM MOLD MAKER HELPER) Narrative Celina Aranda APRN-PERSONAL DRIVER - 10/28/2022 8:55 AM MOLD MAKER HELPER Celina Aranda APRN-CRNA 10/28/2022 10:07 AM Neuraxial Block Note Pre-Procedure: Procedure Name: Neuraxial Block Patient Location: OR Indications: surgical anesthesia Pre-Anesthetic Checklist: Patient identified, IV Checked, Risks and benefits discussed, Surgical consent verified, Monitors and equipment, Site examined, Pre-op evaluation done, Time-out performed, Informed consent obtained, Questions answered/anesthesia questions answered and Allergies reviewed Anticoagulation/ Anti-thrombosis status confirmed? Yes Supplemental O2: room air Monitors: BP and continuous pluse ox Patient Condition: sedated, meaningful contact maintained throughout procedure Procedure: Block Type: Spinal Prep: Betadine Sterile Field: mask, cap/hat, sterile established and sterile gloves Approach: midline Spinal Block: Needle Type: spinal needle Needle Gauge: 20 Needle Length: 90 mm Placement Site: L3-4 Number of Attempts: 1 CSF: free flow Degree of difficulty: none Procedure Tolerance: tolerated well Sensory Level: mid-thoracic Motor Blockade: Yes Position post procedure: supine Vital Signs: Vital signs monitored and stable throughout. See anesthesia record for details. Start Time: 10/28/2022 8:15 AM End Time: 10/28/2022 8:18 AM Total Time: 3 Staff: Anesthesia Provider: Celina Aranda APRN-CRNA - performed the procedure Trevor Wadsworth MD GENERAL ANESTHESIA O RDERABLES * EKG 12-LEAD (10/09/2022 9:32 AM [facility]) Ventricular Rate 59 BPM [facility] Atrial Rate 59 BPM [facility] P-R Interval 148 ms [facility] QRS Duration ms 80 ms [facility] Q-T Interval ms 408 ms [facility] QTC Calculation (Bezet) 403 ms [facility] Calculated P Stroud 49 degrees [facility] Calculated R Str[place] 84 degrees [facility] Calculated T Stroud 58 degrees [facility] Interpretation EKG Sinus bradycardia Otherwise normal ECG No previous ECGs available Confirmed by AYLEEN COBB MD ([id number]) on 10/09/2022 6:33:03 PM [facility] 10/09/2022 9:32 AM MOLD MAKER HELPER 10/09/2022 6:33 PM MOLD MAKER HELPER Sindi L Dando DO ECG ORDERABLES [facility] * CBC W AUTO DIFFERENTIAL (10/09/2022 9:10 AM [facility]) WBC 7.3 4.4 - 10.7 x10E9/L 10/09/2022 9:28 AM MOLD MAKER HELPER [facility] W[facility] Corrected 10/09/2022 9:28 AM [facility] RBC 4.63 3.80 - 5.40 x10E12/L 10/09/2022 9:28 AM [facility] Hemoglobin 15.0 12.0 - 17.6 gm/dL 10/09/2022 9:28 AM [facility] Hematocrit 44.2 35.2 - 51.7 % 10/09/2022 9:28 AM [facility] MCV 95.5 80.7 - 98.3 fl 10/09/2022 9:28 AM [facility] MCH 32.4 26.7 - 34.0 pg 10/09/2022 9:28 AM [facility] MCHC 33.9 30.8 - 35.9 gm/dL 10/09/2022 9:28 AM [facility] Platelet Count 225 153 - 416 x10E9/L 10/09/2022 9:28 AM [facility] RDW-CV 12.3 12.1 - 14.9 % 10/09/2022 9:28 AM [facility] MPV 10.0 9.4 - 12.9 fl 10/09/2022 9:28 AM [facility] Neutrophils % 58.2 44.0 - 73.0 % 10/09/2022 9:28 AM [facility] Lymphocytes % 30.2 20.0 - 43.0 % 10/09/2022 9:28 AM [facility] Monocytes % 7.4 5.0 - 13.0 % 10/09/2022 9:28 AM [facility] Eosinophils % 3.0 0.0 - 6.0 % 10/09/2022 9:28 AM [facility] Basophils % 0.8 0.0 - 2.0 % 10/09/2022 9:28 AM [facility] Immature Granulocytes 0.4 0 - 1 % 10/09/2022 9:28 AM [facility] Neutrophil Absolute 4.24 2.01 - 7.14 x10E9/L 10/09/2022 9:28 AM [facility] Lymphocytes Absolute 2.20 1.07 - 3.94 x10E9/L 10/09/2022 9:28 AM [facility] Monocytes Absolute 0.54 0.26 - 1.07 x10E9/L 10/09/2022 9:28 AM [facility] Eosinophils Absolute 0.22 0 - 0.47 x10E9/L 10/09/2022 9:28 AM [facility] Basophils Absolute 0.06 0 - 0.08 x10E9/L 10/09/2022 9:28 AM [facility] Immature Granulocytes Absolute 0.03 0.00 - 0.06 x10E9/L 10/09/2022 9:28 AM [facility] nRBC Auto 0 /100 WBC 10/09/2022 9:28 AM [facility] Blood BLOOD SPECIMEN / Unknown Venipuncture / Unknown 10/09/2022 9:10 AM [facility] 10/09/2022 9:24 AM [facility] Claudia Justice EXPERIMENTAL MACHINIST-BOOT AND SHOE REPAIRMAN LAB - HEMATO LOGY ORDERABLES [facility] [address] [place] [address] * (ABNORMAL) COMPREHENSIVE METABOLIC PANEL (10/09/2022 9:10 AM [facility]) Glucose 118(H) 70 - 105 mg/dL 10/09/2022 9:43 AM [facility] Sodium 142 136 - 145 mmol/L 10/09/2022 9:43 AM [facility] Potassium 4.3 3.5 - 5.1 mmol/L 10/09/2022 9:43 AM [facility] Chloride 105 98 - 107 mmol/L 10/09/2022 9:43 AM [facility] CO2 26 23 - 31 mmol/L 10/09/2022 9:43 AM [facility] Calcium 9.6 8.4 - 10.4 mg/dL 10/09/2022 9:43 AM [facility] Anion Gap 11 8 - 18 mmol/L 10/09/2022 9:43 AM [facility] BUN 11 8.4 - 25.7 mg/dL 10/09/2022 9:43 AM [facility] Creatinine 0.79 0.72 - 1.25 mg/dL 10/09/2022 9:43 AM [facility] Alkaline Phosphatase 112 40 - 150 U/L 10/09/2022 9:43 AM [facility] ALT 36 0 - 61 U/L 10/09/2022 9:43 AM [facility] AST 32 5 - 34 U/L 10/09/2022 9:43 AM [facility] Protein Total 7.1 6.4 - 8.3 gm/dL 10/09/2022 9:43 AM [facility] Albumin 4.4 3.2 - 4.6 gm/dL 10/09/2022 9:43 AM [facility] Bilirubin Total 0.4 0.2 - 1.2 mg/dL 10/09/2022 9:43 AM [facility] eGFR by CKD-EPI >90 >=90 mL/min/1.7 3 m2 10/09/2022 9:43 AM [facility] Blood BLOOD SPECIMEN / Unknown Venipuncture / Unknown 10/09/2022 9:10 AM MOLD MAKER HELPER 10/09/2022 9:24 AM MOLD MAKER HELPER Claudia Justice EXPERIMENTAL MACHINIST-BOOT AND SHOE REPAIRMAN LAB - CHEMIS TRY ORDERABLES Performing Organization Address City/State/[facility] Co de Phone Number [facility] [address] [place] [address] * XR KNEE BILAT 3VW (05/08/2022 8:24 AM CDT) Anatomical Region Laterality Modality Lower Extremity Computed Radiogr aphy Narrative 05/08/2022 8:24 AM CDT Lucrecia Noriega 05/15/2022 11:00 AM Please see progress notes for result. Shwetha Ibrahim PA-C DIAGNOSTIC IM AGING ORDERABLES * PATHOLOGY TISSUE FOR DERMATOLOGY (06/19/2011 12:00 AM CDT) Result CASE: [id number] PATIENT: CHETAN CALLAHAN PATHOLOGIC DIAGNOSIS: A. Right shoulder: SEBORRHEIC KERATOSIS B. Left upper back: ACANTHOSIS AND HYPERKERATOSIS (see microscopic description and comment) C. Left central back: SEBORRHEIC KERATOSIS CLINICAL DATA: A: Irregular SK. B; Dermatofibroma. C: SK. GROSS DESCRIPTION: A: Received is one formalin filled container labeled with the patient's name and designated right shoulder. The specimen consists of a shave biopsy measuring 6x5x1 mm. Jar 0. B: Received is one formalin filled container labeled with the patient's name and designated left upper back. The specimen consists of a shave biopsy measuring 7x3x1 mm. Jar 0. C: Received is one formalin filled container labeled with the patient's name and designated left central back. The specimen consists of a shave biopsy measuring 5x4x1 mm. Jar 0. MICROSCOPIC DESCRIPTION: SPECIMEN A: Sections show an acanthotic lesion composed of relatively uniform keratinocytes. There is hyperkeratosis and pseudo horn cysts formation. SPECIMEN B: Sections show a shave biopsy with acanthosis and hyperkeratosis. There is minimal dermis present for evaluation with scattered fibroblasts. COMMENT: These histological findings can be seen in a superficial biopsy of a dermatofibroma. SPECIMEN C: Sections show an acanthotic lesion composed of relatively uniform keratinocytes. There is hyperkeratosis and pseudo horn cysts formation. Final Diagnosis performed by Nohemy Skelton M.D. Electronically signed 06/23/2011 1:16:35PM [facility] Comment: Performed at: Dermatopathology Laboratory [facility] - Department of Dermatology [address] [place] [address] Phone number: [phone] Toll Free: [phone] FAX: [phone] 06/19/2011 06/22/2011 Historical Provider LAB - PATHOLOGY/C YTOLOGY ORDERABLES [facility] [address] [facility] Lab [address] [phone] Care Teams Mud Tank Operator Relationship Specialty Start Date End Date Arcelia Garcia MD [address] [facility] [address] [place] [id number] PCP - General Internal Medicine 07/10/22 Danilo Owen MD [address] [facility] [address] [facility] [address] [place] [address] Internal Medicine 10/12/22
--- OUTSIDE RECORDS SUMMARY | 2024-12-18 18:34 | XMS_ITS | Clinical Summary ---
Author Organization [facility] [address] [place] [address] [address] [place] [address] Care Team Providers Care Engineer Systems Name Role Phone Dulce Maria Garcia MD Primary Care Provide r Allergies Active Allergy Reactions Criticality Noted Date Comments Ticagrelor Hives Medium 03/29/2018 Medications aspirin 81 mg tablet Take 1 tablet (81 mg total) by mouth daily Active nitroglycerin (NITROSTAT) 0.4 mg SL tabletIndicatio ns:acute episode of anginal pain Place 1 tablet (0.4 mg total) under the tongue every 5 (five) minutes as needed for chest pain 25 tablet 3 11/25/2023 Active atorvastatin (LIPITOR) 80 mg tablet Take 1 tablet (80 mg total) by mouth daily 30 tablet 11 03/08/2024 Active Active Problems Problem Noted Date Diagnosed Date History of percutaneous coronary intervention Coronary artery disease invo lving [place] coronary artery of [place] heart without angina pectoris 12/31/2017 Tobacco dependence 12/31/2017 Heart attack High cholesterol Encounters Date Type Department Care Team Description 10/16/2024 8:00 AM RESIDENT SERVICES COORDINATOR Office Visit [facility] Cardiology [address] [facility] [address] [place] [address] Danilo Owen MD Coronary artery disease involving [place] coronary artery of [place] heart without angina pectoris (Primary Dx); History of percutaneous coronary intervention from Last 3 Months Surgical History Surgery Date Site/Laterality Comments CHOLECYSTECTOMY APPENDECTOMY KNEE SURGERY Medical History Medical History Date Comments High cholesterol Sleep apnea Family History Medical History Relation Name Comments Heart attack Father Unknown Relation Name Status Comments Father Unknown Alive Mother Alive Social History Tobacco Use Types Packs/Day Years Used Date Smoking Tobacco: Former Smokeless Tobacco: Never Tobacco Cessation:Counseling Given: Not Answered Alcohol Use Standard Drinks/Week Comments Yes 1 (1 standard drink = 0.6 oz pur e alcohol) socially Sex and Gender Information Value Date Recorded Sex Assigned at Not on file Legal Sex Male 1:50 AM RESIDENT SERVICES COORDINATOR Gender Identity Not on file Sexual Orientation Not on file Obstetrics History Last Filed Vital Signs Vital Sign Reading Time Taken Comments Blood Pressure 130/70 10/16/2024 8:03 AM RESIDENT SERVICES COORDINATOR Pulse 54 10/16/2024 8:03 AM RESIDENT SERVICES COORDINATOR Temperature - - Respiratory Rate - - Oxygen Saturation 98% 10/16/2024 8:03 AM RESIDENT SERVICES COORDINATOR Inhaled Oxygen Concentration - - Weight 69.8 kg (153 lb 14.4 oz) 10/16/2024 8:03 AM RESIDENT SERVICES COORDINATOR Height 170.2 cm (5' 7 ) 10/16/2024 8:03 AM RESIDENT SERVICES COORDINATOR Body Mass Index 24.1 10/16/2024 8:03 AM RESIDENT SERVICES COORDINATOR Plan of Treatment Health Maintenance Due Date Last Done Comments Colon Cancer Screening-Colonoscopy 1954 Depression Screening 1954 Fall Risk Assessment 1954 Hepatitis C Screening 1954 Hepatitis B Screening 1972 Zoster Vaccine (1 of 2) 2004 Abdominal Aortic Aneurysm (A AA) Screen 2019 Well Visit 65+ 2019 Influenza Vaccine (#1) 2024 , 08/09/2019, 09/05/2018 DTaP/Tdap/Td Vaccine (2 - Td or Tdap) 10/24/2028 Pneumococcal vaccine 65+ Completed 09/23/2020, 1206/2019 Insurance MEDICARE [facility] Care Teams Engineer Systems Relationship Specialty Start Date End Date Dulce Maria Garcia MD PCP - General Internal Medicine 04/20/19
--- OUTSIDE RECORDS SUMMARY | 2024-12-18 18:34 | XMS_ITS | CONTINUITY OF CARE DOCUMENT ---
Author Name carmela casey Address Unknown Organization [facility] Address [address] [place] [address] [address] [place] [address] Phone [phone] Care Team Providers Care Parts Sales Manager Name Role Phone Darien Mccray MD Unavailable [phone] SHADI JOHN MD Unavailable [phone] SHADI JOHN MD Unavailable [phone] INSURANCE PROVIDERS Payer name Policy type / Coverage type [facility] [employer] party ID [employer] [id number] [place] MEDIC[place] Medicare [id number]
--- OUTSIDE RECORDS SUMMARY | 2024-12-18 18:34 | XMS_ITS | Continuity of Care Document ---
Author Organization [facility] Address [address] [place] [address] [address] [place] [address] Phone Care Team Providers Care Motivational Speaker Name Role Phone Brown OD, Ankush Unavailable Unavailable Advance Directives Directive Yes / No Effective Date File Name No Information Encounters Encounter Description Practice Location Reason(s) For Visit Diagnoses Date Provider Providers Copied on Encounter [facility], [address] [place] [address] [address], [place], [place], [id number], [place] tel:[phone] [facility] No Information May-0 6-200 5 Brown OD Ankush. [address] [facility] , [address], [place], [address], [place]. tel:[phone] Family History Family Member Type Diagnosis Age At Onset No Information Payers Payer name Insurance type Covered republican ID Authoriza tion(s) No Information Social History Type Description Quantity Date Captured Comments Sex Male Smoking Status No Information Chief Complaint And Reason For Visit No Information Reason For Referral Reason For Referral No Information History Of Present Illness Encounter Date Complaint History Of Prese nt Illness No Information Functional Status Date Functional Assessmen t No Information Instructions Date Instruction Additional Infor mation No Information Assessments Type Assessment Date No Information Patient Care Teams Name Effective Dates (start - stop) Status Members No Information
--- OUTSIDE RECORDS SUMMARY | 2024-12-18 18:34 | XMS_ITS | Referral Summary ---
Author Organization [facility] [address] [facility] [address] Address [address] [place] [address] Care Team Providers Care Beef Ribber Name Role Phone Dulce Maria Garcia MD Primary Care Provide r Encounters Date Type Department Care Team Description 10/16/2024 8:00 AM TOOL GRINDING TECHNICIAN Office Visit [facility] Medical [facility] Cardiology [address] [place] [address] Danilo Owen MD Coronary artery disease involving [place] coronary artery of [place] heart without angina pectoris (Primary Dx); History of percutaneous coronary intervention from Last 3 Months Allergies Active Allergy Reactions Criticality Noted Date [...] coronary intervention Coronary artery disease invo lving [place] coronary artery of [place] heart without angina pectoris 12/31/2017 Tobacco dependence 12/31/2017 Heart attack High cholesterol Social History Tobacco Use Types Packs/Day Years Used Date Smoking Tobacco: Former Smokeless Tobacco: Never Tobacco Cessation:Counseling Given: Not Answered Alcohol Use Standard Drinks/Week Comments Yes 1 (1 standard drink = 0.6 oz pur e alcohol) socially Sex and Gender Information Value Date Recorded Sex Assigned at Not on file Legal Sex Male 1:50 AM TOOL GRINDING TECHNICIAN Gender Identity Not on file Sexual Orientation Not on file Last Filed Vital Signs Vital Sign Reading Time Taken Comments Blood Pressure 130/70 10/16/2024 8:03 AM TOOL GRINDING TECHNICIAN Pulse 54 10/16/2024 8:03 AM TOOL GRINDING TECHNICIAN Temperature - - Respiratory Rate - - Oxygen Saturation 98% 10/16/2024 8:03 AM TOOL GRINDING TECHNICIAN Inhaled Oxygen Concentration - - Weight 69.8 kg (153 lb 14.4 oz) 10/16/2024 8:03 AM TOOL GRINDING TECHNICIAN Height 170.2 cm (5' 7 ) 10/16/2024 8:03 AM TOOL GRINDING TECHNICIAN Body Mass Index 24.1 10/16/2024 8:03 AM TOOL GRINDING TECHNICIAN Plan of Treatment Not on file Insurance MEDICARE [facility] [place] [id number] [place] [address] Care Teams Beef Ribber Relationship Specialty Start Date End Date Dulce Maria Garcia MD PCP - General Internal Medicine 04/20/19
--- OUTSIDE RECORDS SUMMARY | 2024-12-18 18:34 | XMS_ITS | Clinical Summary ---
Author Organization [facility] Address [address] [place] [address] Care Team Providers Care Director Of Assisted Living Name Role Phone Arcelia Garcia MD Primary Care Provider Danilo Owen MD Unavailable [phone] Source Comments [facility],non-owned Affiliates and Associated Physician Practices is amultiple site organization consisting of ambulatory clinics and hospital sitesin [place], [place], [place] and [place]. This disclosure is being madepursuant to the Care Everywhere program and may not contain all information available regarding this patient. Last updated 18.[facility] Allergies Active Allergy Reactions Criticality Noted Date Comments Ticagrelor Urticaria Medium 03/29/2018 Medications * Be aware that medications may not be up to date on this document. Alwaysverify current medications with the patient. Medication Sig Dispensed Refills Start Date End Date Status atorvastatin (Lipitor) 40 MG tablet at bedtime 01/29/2021 Active ezetimibe (Zetia) 10 MG tablet Take 1 (one) tablet by mouth once daily 08/25/2022 Active nitroGLYCERIN (Nitrostat) 0.4 MG tablet every 5 minutes as needed Active Multiple Vitamins-Minerals (CENTRUM SILVER PO) Take by mouth once daily Active oxyCODONE, immediate release, (Roxicodone) 5 MG tabletIndications: Postoperative pain Take 1 (one) tablet to 2 (two) tablets by mouth every 6 hours as needed for Pain 42 tablet 10/29/2022 Active celecoxib (CeleBREX) 200 MG capsule Take 1 (one) capsule by mouth 2 times daily 60 capsule 5 10/30/2022 Active docusate sodium (Colace) 100 MG capsuleIndications :Constipation Take 100 mg by mouth 2 times daily as needed for Constipation. Indications: Constipation Active acetaminophen (Tylenol) 500 MG tabletIndications: Pain Take 1,000 mg by mouth 3 times daily as needed for Pain. Indications: Pain Active cephalexin (Keflex) 500 MG capsule Take 1 (one) capsule by mouth 3 times daily 30 capsule 12/10/2022 Active Active Problems Problem Noted Date Diagnosed [...] and heating? 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 60 11/17/2022 11:26 AM OVERHAULER [employer] Temperature 36.4 C (97.5 F) 11/17/2022 11:26 AM OVERHAULER [employer] TR[employer] Respiratory Rate 16 11/17/2022 11:26 AM OVERHAULER [employer] TR[employer] Oxygen Saturation 98% 11/17/2022 11:26 AM OVERHAULER [employer] TR[employer] Inhaled Oxygen Concentration - - Weight 71.4 kg (157 lb 6.4 oz) 10/28/2022 6:40 A M OVERHA[employer]ER [employer] Height 170.2 cm (5' 7 ) 10/28/2022 6:40 AM OVERHAULER [employer] TRUCK s tated Body Mass Index 24.65 10/28/2022 6:40 AM OVERHAULER [employer] TR[employer] Plan of Treatment Health Maintenance Due Date Last Done Comments COLOGUARD (AGES 45-75) - COL ON CA SCREENING 1954 COLON MONITORING 1954 COLONOSCOPY - COLON CA SCREENING 1954 CT COLONOGRAPHY - COLON CA SCREENING 1954 Colorectal Cancer Screening 1954 FIT - COLON CA SCREENING 1954 FLEX SIG - COLON CA SCREENING 1954 MEDICARE AWV 12 MONTHS 1954 HEPATITIS C SCREENING 04/10/1972 DTAP/TDAP/TD VACCINES (1 - Tdap) 1973 PNEUMOCOCCAL VACCINE 50+ (1 of 2 - PCV) 1973 ZOSTER VACCINE (1 of 2) 2004 AAA SCREENING 2019 COVID-19 VACCINE (3 2023-2 5 season) 2024 12/09/2020, 11/11/2020 INFLUENZA VACCINE (#1) 2024 0, 08/09/2019, 09/05/2018 DEPRESSION SCREENING 10/04/2024 Respiratory Syncytial Virus (RSV) Vaccine Pt: or over 60 yrs (1 - 1-dose 75+ series) 2029 HEPATITIS B VACCINE Aged Out No longe r eligible based on patient's age to complete this topic HIB VACCINE Aged Out No longer eligi ble based on patient's age to complete this topic HPV VACCINE Aged Out No longer eligi ble based on patient's age to complete this topic MENINGOCOCCAL (Group B) VACCINE SHARED DECISION-MAKING Aged Out No longer eligible based on patient's age to complete this topic MENINGOCOCCAL GROUPS A/C/Y/W VACCINE Aged Out No longer eligible b ased on patient's age to complete this topic Medical Devices Implanted Type Area Translator/Interpreter Device Identifier Shelf Expiration Date Model / Serial / Lot Cmpnt Ptlr Std 31mm 3 Pg Kn Ser A Implanted:Qty: 1 on 10/28/2022 by Roberto Malik MD at [facility] Left: Knee [employer] 06/17/2027 [id number] / / [id number] Cmpnt Fem Kn Lt Cr Cmnt Prm Vngrd Intlk Implanted:Qty: 1 on 10/28/2022 by Roberto Malik MD at [facility] Left: Knee [employer] 09/26/2032 [id number] / / [id number] Tray Tib 79mm Kn Cocr I Beam Implanted:Qty: 1 on 10/28/2022 by Roberto Malik MD at [facility] Left: Knee [employer] 09/04/2032 [id number] / / [id number] Cmnt Bone Djo Srg Cblt 40gm Hvisc Strl Implanted:Qty: 2 on 10/28/2022 by Roberto Malik MD at [facility] Left: Knee [employer] 05/27/2024 600-15-000 / / [id number] Brng [id number] Vngrd Arcm Kn Ant Stab Implanted:Qty: 1 on 10/28/2022 by Roberto Malik MD at [facility] Left: Knee [employer] 08/25/2027 [id number] / / [id number] Advance Directives Documents on File Type Date Recorded 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 Do not modify or discontinue any currently active code status orders. * Full Code Date Activated Date Inactivated Comments 10/28/2022 12:22 PM 10/29/2022 5:26 PM Care Teams Director Of Assisted Living Relationship Specialty Start Date End Date Arcelia Garcia MD [address] [facility] [address] [place] [address] PCP - General Internal Medicine 07/10/22 Danilo Owen MD [address] [place] [address] Internal Medicine 10/12/22
--- OUTSIDE RECORDS SUMMARY | 2024-12-18 18:34 | XMS_ITS | Referral Summary ---
Author Organization [facility] Address [address] [place] [address] Care Team Providers Care Deicer Tester Name Role Phone Arcelia Garcia MD Primary Care Provider Danilo Owen MD Unavailable [phone] Source Comments [facility],non-[facility] Affiliates and Associated Physician Practices is amultiple site organization consisting of ambulatory clinics and hospital sitesin [place], [place] and [place]. This disclosure is being madepursuant to the Care Everywhere program and may not contain all information available regarding this patient. Last updated 18.[facility] Allergies Active Allergy Reactions Criticality Noted [...] and heating? Not hard at all 10/29/2022 [facility] [place] of Occupat ional Health - Occupational Stress [...] place to sleep or slept in a skilled nursing (including now)? No 10/29/2022 Sex and Gender Information Value Date Recorded Sex Assigned at Not on file Gender Identity Not on file Sexual Orientation Not on file Last Filed Vital Signs Vital Sign Reading Time Taken Comments Blood Pressure 126/64 11/17/2022 11:26 AM HEM MARKER Pulse 60 11/17/2022 11:26 AM HEM MARKER Temperature 36.4 C (97.5 F) 11/17/2022 11:26 AM HEM MARKER Respiratory Rate 16 11/17/2022 11:26 AM HEM MARKER Oxygen Saturation 98% 11/17/2022 11:26 AM HEM MARKER Inhaled Oxygen Concentration - - Weight 71.4 kg (157 lb 6.4 oz) 10/28/2022 6:40 A M HEM MARKER Height 170.2 cm (5' 7 ) 10/28/2022 6:40 AM HEM MARKER s tated Body Mass Index 24.65 10/28/2022 6:40 AM HEM MARKER Functional Status Functional Status Response Date of Assess ment Is person deaf or have serious hearing difficult y? No 10/28/2022 Is person blind or have serious difficulty seein g? No 10/28/2022 Does person have serious dif ficulty walking/climbing stairs? No 10/28/2022 Does person have difficulty dressing/bathing? No 10/28/2022 Does person have difficulty doing errands alone? No 10/28/2022 Cognitive Status Response Date of Assessm ent Does person have difficulty concentrating/remembering/making decisions? No 10/28/2022 Plan of Treatment Not on file Medical Devices Implanted Type Area Cold Reduction Roller Device Identifier Shelf Expiration Date Model / Serial / Lot Cmpnt Ptlr Std 31mm 3 Pg Kn Ser A Implanted:Qty: 1 on 10/28/2022 by Roberto Malik MD at [facility] Left: Knee [employer] 06/17/2027 [id number] / / [id number] Cmpnt Fem Kn Lt Cr Cmnt Prm Vngrd Intlk Implanted:Qty: 1 on 10/28/2022 by Robreto Malik MD at [facility] Left: Knee [employer] 09/26/2032 [id number] / / [id number] Tray Tib 79mm Kn Cocr I Beam Implanted:Qty: 1 on 10/28/2022 by Roberto Malik MD at [facility] Left: Knee [employer] 09/04/2032 [id number] / / [id number] Cmnt Bone Djo Srg Cblt 40gm Hvisc Strl Implanted:Qty: 2 on 10/28/2022 by Roberto Malik MD at [facility] Left: Knee [employer] 05/27/2024 600-15-000 / / [id number] Brng [id number] Vngrd Arcm Kn Ant Stab Implanted:Qty: 1 on 10/28/2022 by Roberto Malik MD at 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
== END 2024-12-18 16:00 | disposition home or self-care (01) ==
PROVIDERS: PCP Internal Medicine; Visit Provider Internal Medicine
DX: Z12.2 Encounter for screening for malignant neoplasm of respiratory organs (principal); Z87.891 Personal history of nicotine dependence
CPT/HCPCS: 71271